=== PATIENT | male | born 1965 | race Caucasian/White ===

== ENCOUNTER → 2018-12-22 | Emergency (ER) | payer OTHER ==
[~2018-12-22] VITALS: Ht 165.1 cm; Wt 89.0 kg
[~2018-12-22] MED LIST: HYDROCODONE/APAP (5/325) TAB PO ONE; NAPR-985 PO; ONDANSETRON (ODT) 4 MG TAB ODT STA; OXYC-279 PO
[2018-12-22 11:27] VITALS: BP 136/92; PULSE 75; RESP 18; Ht 165.1 cm; Wt 89.0 kg
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
== END | disposition home or self-care (01) ==
LOC: FTE 11:13
DX: M54.2 Cervicalgia (principal)
CPT/HCPCS: 72040; 73090; 73562; Z7610